=== PATIENT | male | born 1995 | race Caucasian/White ===

== ENCOUNTER 2021-07-19 04:20 | Emergency (ER) | payer BC ==
[2021-07-19] MEDS ORDERED: Sodium Chloride 0.9% 1000 ML 1,000 ML IV STA ×2 (04:39→06:50)
[2021-07-19] MEDS ORDERED: PROTONIX 40 MG IV IV ONE ×2 (04:39→04:55)
[2021-07-19] MEDS ORDERED: Compazine 10 MG/2 ML IV ONE (04:39)
[2021-07-19] MEDS ORDERED: Hydromorphone 1 mg/ml Injection IV ONE ×2 (04:39→06:05)
[2021-07-19] MEDS ORDERED: Hydromorphone 1 mg/ml Injection ONE ×2 (04:55→06:13)
[2021-07-19] MEDS ORDERED: Sodium Chloride 0.9% 1000 ML 1,000 ML ONE ×2 (04:55→06:53)
[2021-07-19] MEDS ORDERED: Compazine 10 MG/2 ML ONE (04:55)
--- NOTE | 2021-07-19 05:07 | ERPHSYRPT ---
- History of Present Illness Time Seen by Provider: 07/19/21 04:30 Historian: patient, family Exam Limitations: no limitations Patient Subjective Stated Complaint: " I've had pain in my right lower side all day and I started vomiting tonight because of this pain". Triage Nursing Assessment: Pt presents to ER with complaints of rLQ abdominal pains that radiate to right flank region. Pt is alert and oriented x3. Arrives by ambulance. Patient actively vomiting upon arrival. Pt states pain is severe and abdomen is tender. Denies diarrhea. Respirations are unlabored at this time. Pt states last oral intake approx 6 hours ago. Skin is pink, warm, and dry. Pt complains of hot flashes. Appears to be in pain. Physician History: This is a 25-year-old white male who has had multiple episodes of vomiting in the last hour prior to arrival. Patient had pain in the right lower quadrant which radiated into the right flank beginning the morning of 07/18/2021. The pain was present but tolerable. The pain did not interfere with him eating. His last meal was approximately 6 hours prior to arrival. However, approximately 1 hour prior to arrival he began having several episodes of vomiting and the pain in the above-stated areas worsened. Patient denies chest pain. He denies shortness of air. He denies cough. He denies fevers and chills. He denies diarrhea. Patient states he is never had this kind of pain before. No other individuals have similar symptoms as he does. Timing/Duration: today Activities at Onset: none Quality: stabbing Abdominal Pain Onset Location: RLQ, flank (Right) Pain Radiation: RLQ, flank (Right) Severity of Pain-Max: moderate Severity of Pain-Current: moderate Modifying Factors: Improves With: vomiting Associated Symptoms: nausea, vomiting, No chest pain, No diarrhea, No fever/chills, No shortness of breath Previous symptoms: no prior history Allergies/Adverse Reactions: No Known Drug Allergies Allergy (Verified 07/19/21 04:30) Hx Tetanus, Diphtheria Vaccination/Date Given: Yes Hx Influenza Vaccination/Date Given: Yes Hx Pneumococcal Vaccination/Date Given: No Immunizations Up to Date: Yes Travel Risk - International Travel Have you traveled outside of the country in past 3 weeks: No - Coronavirus Screening Are you exhibiting any of the following symptoms?: No Close contact with a COVID-19 positive Pt in past 14-21 Days: No - Vaccine Status Have you recieved a Covid-19 vaccination: No - Review of Systems Constitutional: No Symptoms Eyes: No Symptoms Ears, Nose, & Throat: No Symptoms Respiratory: No Symptoms Cardiac: No Symptoms Abdominal/Gastrointestinal: Abdominal Pain, Nausea, Vomiting, No Diarrhea Genitourinary Symptoms: No Symptoms Musculoskeletal: No Symptoms Skin: No Symptoms Neurological: No Symptoms Psychological: No Symptoms Endocrine: No Symptoms Hematologic/Lymphatic: No Symptoms Immunological/Allergic: No Symptoms All Other Systems: Reviewed and Negative - Past Medical History Pertinent Past Medical History: No Other Medical History: seizures - Past Surgical History Past Surgical History: No Other Surgical History: pt is not able to tell about surgeries - Social History Smoking Status: Current every day smoker Exposure to second hand smoke: No Drug Use: none Patient Lives Alone: Yes - Nursing Vital Signs Nursing Vital Signs: Initial Vital Signs Temperature 97 F 07/19/21 04:21 Pulse Rate 55 L 07/19/21 04:21 Respiratory Rate 18 07/19/21 04:21 Blood Pressure 124/91 07/19/21 04:21 O2 Sat by Pulse Oximetry 100 07/19/21 04:21 Pain Scale Pain Intensity 9 - Physical Exam General Appearance: mild distress, alert, anxiety Eye Exam: PERRL/EOMI, eyes nml inspection Ears, Nose, Throat Exam: normal ENT inspection, moist mucous membranes Neck Exam: normal inspection, non-tender, supple, full range of motion Respiratory Exam: normal breath sounds, lungs clear, airway intact, No chest tenderness, No respiratory distress Cardiovascular Exam: regular rate/rhythm, normal heart sounds, normal peripheral pulses Gastrointestinal/Abdomen Exam: soft, normal bowel sounds, tenderness (Right lower quadrant), guarding (Right lower quadrant), No rebound Rectal Exam: not done Back Exam: normal inspection, normal range of motion, CVA tenderness (Right), No vertebral tenderness Extremity Exam: normal inspection, normal range of motion, pelvis stable Neurologic Exam: alert, oriented x 3, cooperative, lubrication supervisor II-XII nml as tested, normal mood/affect, nml cerebellar function, nml station & gait, sensation nml Skin Exam: normal color, warm, dry Lymphatic Exam: No adenopathy SpO2 Interpretation: normal SpO2: 100 O2 Delivery: Room Air - Course Nursing assessment & vital signs reviewed: Yes Ordered Tests: Active Orders 24 hr Category Date Time Status IV Insertion STAT Care 07/19/21 04:39 Active ABDOMEN AND PELVIS W/0 CONTRAS [CT] Stat Exams 07/19/21 04:39 Taken AMYLASE Stat Lab 07/19/21 04:39 Completed CBC W DIFF Stat Lab 07/19/21 04:39 Completed CMP Stat Lab 07/19/21 04:39 Completed LIPASE Stat Lab 07/19/21 04:39 Completed Lactic Acid Stat Lab 07/19/21 05:30 Completed UA W/RFX UR CULTURE Stat Lab 07/19/21 05:38 Completed Medication Summary Discontinued Medications Generic Name Dose Route Start Last Admin Trade Name Freq PRN Reason Stop Dose Admin Hydromorphone HCl 1 mg 07/19/21 04:39 07/19/21 04:57 Hydromorphone 1 Mg/Ml Injection IV 07/19/21 04:40 1 mg STAT ONE Administration Hydromorphone HCl Confirm 07/19/21 04:55 Hydromorphone 1 Mg/Ml Injection Administered 07/19/21 04:56 Dose 1 mg .ROUTE .STK-MED ONE Hydromorphone HCl 1 mg 07/19/21 06:05 07/19/21 06:14 Hydromorphone 1 Mg/Ml Injection IV 07/19/21 06:06 1 mg STAT ONE Administration Hydromorphone HCl Confirm 07/19/21 06:13 Hydromorphone 1 Mg/Ml Injection Administered 07/19/21 06:14 Dose 1 mg .ROUTE .STK-MED ONE Sodium Chloride 1,000 mls @ 999 mls/hr 07/19/21 04:39 07/19/21 04:57 Sodium Chloride 0.9% 1000 Ml IV 07/19/21 05:39 999 mls/hr .Q1H1M STA Administration Sodium Chloride Confirm 07/19/21 04:55 Sodium Chloride 0.9% 1000 Ml Administered 07/19/21 04:56 Dose 1,000 mls @ ud .ROUTE .STK-MED ONE Ketorolac Tromethamine 30 mg 07/19/21 06:05 07/19/21 06:14 Toradol 30 Mg Injection IV 07/19/21 06:06 30 mg STAT ONE Administration Ketorolac Tromethamine Confirm 07/19/21 06:13 Toradol 30 Mg Injection Administered 07/19/21 06:14 Dose 30 mg .ROUTE .STK-MED ONE Pantoprazole Sodium 40 mg 07/19/21 04:39 07/19/21 04:57 Protonix 40 Mg Iv IV 07/19/21 04:40 40 mg STAT ONE Administration Pantoprazole Sodium Confirm 07/19/21 04:55 Protonix 40 Mg Iv Administered 07/19/21 04:56 Dose 40 mg IV .STK-MED ONE Prochlorperazine Edisylate 10 mg 07/19/21 04:39 07/19/21 04:57 Compazine 10 Mg/2 Ml IV 07/19/21 04:40 10 mg STAT ONE Administration Prochlorperazine Edisylate Confirm 07/19/21 04:55 Compazine 10 Mg/2 Ml Administered 07/19/21 04:56 Dose 10 mg .ROUTE .STK-MED ONE Lab/Rad Data: Laboratory Result Diagrams 07/19/21 04:39 07/19/21 04:39 Laboratory Results 07/19/21 07/19/21 07/19/21 Range/Units 05:38 05:30 04:39 WBC (4.0-10.5) K/mm3 RBC (4.1-5.6) M/mm3 Hgb (12.5-18.0) gm/dl Hct (42-50) % MCV (78-100) fl MCH (26-32) pg MCHC (32-36) g/dl RDW (11.5-14.0) % Plt Count (150-450) K/mm3 MPV (7.5-11.0) fl Gran % (36.0-66.0) % Eos # (Auto) (0-0.5) Absolute Lymphs (auto) (1.0-4.6) Absolute Monos (auto) (0.0-1.3) Lymphocytes % (24.0-44.0) % Monocytes % (0.0-12.0) % Eosinophils % (0.00-5.0) % Basophils % (0.0-0.4) % Absolute Granulocytes (1.4-6.9) Basophils # (0-0.4) Sodium 143 (137-145) mmol/L Potassium 3.7 (3.5-5.1) mmol/L Chloride 104 (98-107) mmol/L Carbon Dioxide 24 (22-30) mmol/L Anion Gap 19.0 H (5-15) MEQ/L BUN 10 (9-20) mg/dL Creatinine 0.90 (0.66-1.25) mg/dL Estimated GFR > 60.0 ML/MIN Glucose 108 H (74-106) mg/dL Lactic Acid 1.2 (0.4-2.0) Calcium 10.3 H (8.4-10.2) mg/dL Total Bilirubin 0.60 (0.2-1.3) mg/dL AST 31 (17-59) U/L ALT 28 (0-50) U/L Alkaline Phosphatase 87 (38-126) U/L Serum Total Protein 7.9 (6.3-8.2) g/dL Albumin 4.8 (3.5-5.0) g/dL Amylase 66 (30-110) U/L Lipase 34 (23-300) U/L Urine Color YELLOW (YELLOW) Urine Appearance CLEAR (CLEAR) Urine pH 7.0 (5-6) Ur Specific [place] 1.014 (1.005-1.025) Urine Protein NEGATIVE (Negative) Urine Ketones NEGATIVE (NEGATIVE) Urine Blood LARGE (0-5) Adolfo/ul Urine Nitrite NEGATIVE (NEGATIVE) Urine Bilirubin NEGATIVE (NEGATIVE) Urine Urobilinogen NEGATIVE (0-1) mg/dL Ur Leukocyte Esterase NEGATIVE (NEGATIVE) Urine WBC (Auto) NONE (0-5) /HPF Urine RBC (Auto) 51-100 (0-2) /HPF U Epithel Cells (Auto) NONE (FEW) /HPF Urine Bacteria (Auto) NONE SEEN (NEGATIVE) /HPF Urine Culture Reflexed NO (NO) Urine Glucose NEGATIVE (NEGATIVE) mg/dL 07/19/21 Range/Units 04:39 WBC 13.4 H (4.0-10.5) K/mm3 RBC 6.25 H* (4.1-5.6) M/mm3 Hgb 18.6 H (12.5-18.0) gm/dl Hct 54.5 H (42-50) % MCV 87.2 (78-100) fl MCH 29.8 (26-32) pg MCHC 34.1 (32-36) g/dl RDW 14.0 (11.5-14.0) % Plt Count 263 (150-450) K/mm3 MPV 10.6 (7.5-11.0) fl Gran % 66.1 H (36.0-66.0) % Eos # (Auto) 0.11 (0-0.5) Absolute Lymphs (auto) 3.59 (1.0-4.6) Absolute Monos (auto) 0.83 (0.0-1.3) Lymphocytes % 26.8 (24.0-44.0) % Monocytes % 6.2 (0.0-12.0) % Eosinophils % 0.8 (0.00-5.0) % Basophils % 0.1 (0.0-0.4) % Absolute Granulocytes 8.85 H (1.4-6.9) Basophils # 0.02 (0-0.4) Sodium (137-145) mmol/L Potassium (3.5-5.1) mmol/L Chloride (98-107) mmol/L Carbon Dioxide (22-30) mmol/L Anion Gap (5-15) MEQ/L BUN (9-20) mg/dL Creatinine (0.66-1.25) mg/dL Estimated GFR ML/MIN Glucose (74-106) mg/dL Lactic Acid (0.4-2.0) Calcium (8.4-10.2) mg/dL Total Bilirubin (0.2-1.3) mg/dL AST (17-59) U/L ALT (0-50) U/L Alkaline Phosphatase (38-126) U/L Serum Total Protein (6.3-8.2) g/dL Albumin (3.5-5.0) g/dL Amylase (30-110) U/L Lipase (23-300) U/L Urine Color (YELLOW) Urine Appearance (CLEAR) Urine pH (5-6) Ur Specific [place] (1.005-1.025) Urine Protein (Negative) Urine Ketones (NEGATIVE) Urine Blood (0-5) Adolfo/ul Urine Nitrite (NEGATIVE) Urine Bilirubin (NEGATIVE) Urine Urobilinogen (0-1) mg/dL Ur Leukocyte Esterase (NEGATIVE) Urine WBC (Auto) (0-5) /HPF Urine RBC (Auto) (0-2) /HPF U Epithel Cells (Auto) (FEW) /HPF Urine Bacteria (Auto) (NEGATIVE) /HPF Urine Culture Reflexed (NO) Urine Glucose (NEGATIVE) mg/dL - Progress Progress: improved, pain not gone completely, re-examined Progress Note: 07/19/21 06:46 CAT scan of the abdomen and pelvis without contrast shows a mild right hydronephrosis in association with a 1 mm right ureteral calculus. The appendix is without periappendiceal inflammation to suggest acute appendicitis. Counseled pt/family regarding: lab results, diagnosis, need for follow-up, rad results - Departure Departure Disposition: Home Clinical Impression: Right ureteral calculus Condition: Stable Critical Care Time: No Referrals: [facility] [Primary Care Provider] - Additional Instructions: Drink plenty of fluids. Take ibuprofen 600 mg orally with food 3 times a day for the next 4 days. Take all other medications as prescribed. Prescriptions: Ondansetron ODT 4 MG [Zofran Odt 4 mg] 4 mg PO Q6H PRN PRN #10 tablet PRN Reason: Vomiting Hydrocodone/APAP 5/325 [[place] 5/325 mg] 1 each PO Q8H PRN PRN #6 tablet MDD 3 PRN Reason: Pain Tamsulosin HCl 0.4 mg [Flomax 0.4 MG] 0.4 mg PO DAILY #7 cap
[2021-07-19 05:15] LABS: Absolute Neutrophil Ct (ANC) 8.85 (1.4-6.9); BASOPHIL % 0.1 % (0.0-0.4); Basophil (Absolute #) 0.02 (0-0.4); Eosinophil % 0.8 % (0.00-5.0); Eosinophil (Absolute #) 0.11 (0-0.5); Hematocrit 54.5 % (42-50); Hemoglobin 18.6 gm/dl (12.5-18.0); Lymphocyte (Absolute #) 3.59 (1.0-4.6); Lymphocytes % 26.8 % (24.0-44.0); Mean Cell Volume 87.2 fl (78-100); Mean Corpuscular Hemoglobin 29.8 pg (26-32); Mean Corpuscular Hgb Concent. 34.1 g/dl (32-36); Mean Platelet Volume 10.6 fl (7.5-11.0); Monocyte (Absolute #) 0.83 (0.0-1.3); Monocytes % 6.2 % (0.0-12.0); Neutrophil % 66.1 % (36.0-66.0); Platelet Count 263 K/mm3 (150-450); Red Blood Count 6.25 M/mm3 (4.1-5.6); White Blood Count 13.4 K/mm3 (4.0-10.5)
[2021-07-19 05:37] LABS: ALBUMIN 4.8 g/dL (3.5-5.0); ALKALINE PHOSPHATASE 87 U/L (38-126); AMYLASE 66 U/L (30-110); BLOOD UREA NITROGEN 10 mg/dL (9-20); CHLORIDE 104 mmol/L (98-107); Calcium 10.3 mg/dL (8.4-10.2); Carbon Dioxide 24 mmol/L (22-30); EST GLOMERULAR FILTRATION RATE > 60.0 ML/MIN; Glucose 108 mg/dL (74-106); LIPASE 34 U/L (23-300); Potassium 3.7 mmol/L (3.5-5.1); SGOT/AST 31 U/L (17-59); SGPT/ALT 28 U/L (0-50); SODIUM 143 mmol/L (137-145); Total Protein 7.9 g/dL (6.3-8.2)
[2021-07-19 05:57] LABS: Appearance CLEAR (CLEAR); Bilirubin NEGATIVE (NEGATIVE); Blood LARGE Ery/ul (0-5); Glucose NEGATIVE (NEGATIVE); Ketones NEGATIVE (NEGATIVE); Leukocyte Esterase NEGATIVE (NEGATIVE); Nitrite NEGATIVE (NEGATIVE); Protein,Urine Dip NEGATIVE (Negative); RBC 51-100 /HPF (0-2); Specific Gravity 1.014 (1.005-1.025); Urobilinogen NEGATIVE mg/dL (0-1)
[2021-07-19 06:03] LABS: Bacteria NONE SEEN /HPF (NEGATIVE)
[2021-07-19] MEDS ORDERED: TORAdol 30 mg Injection IV ONE (06:05)
[2021-07-19] MEDS ORDERED: TORAdol 30 mg Injection ONE (06:13)
[2021-07-19] MEDS ORDERED: Flomax 0.4 MG PO ONE (06:51)
[2021-07-19] MEDS ORDERED: Flomax 0.4 MG ONE (06:53)
[2021-07-19 08:23] VITALS: BP 122/83; PULSE 71; O2SAT 100
--- NOTE | 2021-07-19 09:01 | XRAY ---
Indication: Right flank pain, nausea, and vomiting. Multiple contiguous axial images obtained through the abdomen and pelvis without contrast. Comparison: None. Lung bases clear. Heart not enlarged. Noncontrasted stomach and bowel loops nonobstructed. Normal appendix. No free fluid/air. 2-3 mm proximal right ureter calculus, approximately L3-L4 level. Mild right-sided hydronephrosis consistent with partial obstructive uropathy. Nonobstructing punctate left renal calculus. Remaining liver, gallbladder, pancreas, spleen, adrenal glands, kidneys, ureters, bladder, and aorta are unremarkable for noncontrast exam. Osseous structures intact. Incidental left L5 spondylolysis without spondylolisthesis. Impression: 1. 2-3 mm proximal right ureter calculus producing partial obstruction as detailed. Nonobstructing punctate left renal calculus. 2. Incidental L5 spondylolysis without spondylolisthesis. Comment: Preliminary interpretation made by [facility]. No critical discrepancy.
== END 2021-07-19 08:06 | disposition home or self-care (01) ==
LOC: ED 04:20
DX: N20.1 Calculus of ureter (principal); R10.31 Right lower quadrant pain; R11.2 Nausea with vomiting, unspecified
CPT/HCPCS: 36000; 36415; 74176; 80053; 81001; 82150; 83605; 83690; 85025; 96360; 96361; 96374; 96375; 96376; 99285; J1170; J1885; A9270-GY